=== PATIENT | female | born 1995 | race Caucasian/White ===

== ENCOUNTER 2022-08-14 13:51 | Outpatient (CLI) | payer BC, SELFPAY ==
--- OUTSIDE RECORDS SUMMARY | 2022-08-14 13:55 | XMS_ITS | Clinical Summary ---
:1995 Author Organization [employer] [facility] [place] [address] Care Team Providers Name Role Phone Sukhdeep Echols PA-C Primary Care Provider Unknown, Doctor Unavailable Unavailable Allergies Active Allergy Reactions Severity Noted Date Comments Ampicillin Rash 01/04/2006 Penicillins Hives 10/11/2018 Medications Medication Sig Dispensed Refills Start Date End Date Status BROMFED PD 6 MG-7.5 MG Take 1 cap every 60 3 07/28/2006 Active 12 HR CAP 12 hours as needed BROMFENEX PD 6 MG-60 one PO BID 60 0 07/30/2006 Active MG CAP Active Problems Not on file Immunizations Name Administration Dates Next Due AMB Influenza, IIV3 (Age >=3 08/12/2009 years)(Flu Clinic Only) COVID-19 vaccine ([email or web address] 11/20/2020, 10/30/2020 30mcg/0.3mL) PF, MDV DTP-HIB 03/07/1996, 1995, 1995, 1995 DTaP 01/02/2000 Hepatitis B (Peds) 1995, 1995, 1995 Inactivated Polio Vaccine 01/02/2000 Influenza, IIV3 (Age >=3 years) 09/13/2006, 08/28/2005, 11/08, 08/29/2003, 09/11/2002, 10/12/2001 MMR 01/02/2000, 03/07/1996 Meningococcal Vaccine 01/04/2006 Oral Polio Vaccine 1995, 1995, 1995 Tdap 01/04/2006 Family History Medical History Relation Name Comments Genetic Other cataracts-grandm other~Family history of:~~Breast Canc er: No~~Ovarian Cancer: No~~Colon CA: No ~~Prostate/Testicular CA: pat ggpa~~Osteop orosis: No~~Early CAD: No~~DM: No~~Thyr oid Dz: No Cancer-prostate Paternal Grandfather Relation Name Status Comments Other Paternal Grandfather Social History Tobacco Use Types Packs/Day Years Used Date Never Smoker 0 Alcohol Use Standard Drinks/Week Comments No 0 (1 standard drink = 0.6 oz pure alcoho l) Sex Assigned at Date Recorded Not on file Obstetrics History Last Filed Vital Signs Vital Sign Reading Time Taken Comments Blood Pressure 122/88 10/11/2018 9:20 PM CONSERVATOR ARTIFACTS Pulse 85 10/11/2018 9:20 PM CONSERVATOR [employer]IFACTS Temperature 35.9 ??C (96.6 ??F) 10/11/2018 9:20 PM CONSERVATOR ARTIFACTS Respiratory Rate 15 10/11/2018 9:20 PM CONSERVATOR [employer]IFACTS Oxygen Saturation 100% 10/11/2018 9:20 PM CONSERVATOR ARTIFACTS Inhaled Oxygen Concentration - - Weight 61.2 kg (135 lb) 10/11/2018 9:20 PM CONSERVATOR ARTIFACTS Height 175.3 cm (5' 9) 10/11/2018 9:20 PM CONSERVATOR [employer]IFACTS Body Mass Index 19.94 10/11/2018 9:20 PM CONSERVATOR ARTIFACT[employer] Plan of Treatment Health Maintenance Due Date Last Done Comments Depression screening for age 12+ 2007 BMI (ht and wt on same day) for 2013 age 18+ Hepatitis C screening for age 0201/03/2013 18-79 Tetanus booster 01/04/2016 01/04/2006 COVID-19 vaccine series (3 - 04/20/2021 11/20/2020, 020 Booster for Pfizer series) Influenza for age 9-49 07/09/2022 08/12/2009, 09/13/2006, 08/28/2005, Additional history exists Pap test for age 21-65 12/27/2023 12/27/2020, 09/08/2019, 09/08/2019, Additional history exists Tdap Completed 01/04/2006 Results Not on filefrom Last 3 Months Insurance Payer Benefit Plan / Subscriber ID Effective Dates Phone Addre ss Type Group WC WORKERS [employer] [id number] 2020-Prese [address] [place] [address] BLUE CROSS BLUE CROSS OF [id number] 2018-Presen [address] [address] [place] [address] BLUE CROSS BLUE CROSS OF [id number] 2018-Presen [address] [address] [place] [address] OCC HEALTH OCC HEALTH [id number] 2020-Pres [address] ATTN: CHARLI SALES [facility] [place] [address] Sangeeta King Workers Comp Self [phone] (Home) [place] [address] Care Teams Manager Net Relationship Specialty Start Date End Date Sukhdeep Echols PA-C PCP - General Physician Electric Refrigerator Preparer 01/17/20 [id number] [place] [address] Unknown, Doctor Unknown Physician 01/17/20 . Specialty
--- NOTE | 2022-08-14 14:00 | CRLHL7_ITS ---
For Patients: As a result of the Century Cures Act, medical imaging exams and procedure reports are released immediately into your electronic medical record. You may view this report before your referring provider. If you have questions, please contact your health care provider. OB ULTRASOUND 08/14/2022 CLINICAL HISTORY: Encounter for supervision of normal . NATHALY by LMP: 12/29/2022. GA: 20w, 1d. . P: 0. FINDINGS: position: Vertex. Cervix: Visualized. Technique: Transabdominal. Length of closed cervix: 4.8 cm. Placenta/cord: Posterior. Left wall. Placenta tip to internal OS: 7.1 cm. Umbilical Cord: 3-vessel cord. Placenta insertion: Central. Amniotic Fluid: 4.2 cm SDP (greater than/equal to: 2- less than 8 cm). SURVEY: Observed Structures Calvarium/Spine: Cerebellum: 2.0 cm, 20w 5d. Cisterna Magna: 2.5 mm. Nuchal Fold: 3.1 mm. Lateral Ventricle: 3.8 mm. CSP: Yes. Midline Falx: Yes. Choroid Plexus: Yes. Spine: Yes. Abdomen: Stomach: Yes. Abd Cord Insertion: Yes. Urinary Bladder: Yes. Kidneys: Yes. Diaphragm: Yes. Face: Nose/lips: Yes. Orbital view: Yes. Profile: Yes. Limbs: Upper Extremities: Yes. Lower Extremities: Yes. Hands: Yes. Feet: Yes. Vascular: Four-Chamber Heart: Yes. LVOT: Yes. RVOT: Yes. BPD: 4.8 cm. 20w 3d, 50 percent. HC: 17.9 cm. 20w 3d, 39 percent. AC: 15.9 cm. 21w 0d, 64 percent. FL: 3.1 cm. 19w 5d, 20 percent. FL/AC: 19.73 percent. HC/AC Ratio: 1.13. Heart rate: 141 beats per minute. age by this US: 20w 3d. NATHALY by this US: 12/29/2022. EFW: 353.10 g. Weight: 12 oz. Percentile by NATHALY: 45 percent. IMPRESSION: Single live intrauterine gestation with gestational age of 20 weeks 3 days, NATHALY of 12/29/2022. No gross anomalies visualized. TAWANA CARTER M.D. Transcribed: 7:42 p.m. [email or web address] be/Dictated by: Tawana Carter MD @ 08/14/2022 3:30:00 PM (Electronically Signed)
== END 2022-08-14 13:52 | disposition home or self-care (01) ==
LOC: US 13:52
PROVIDERS: PCP Physician Assistant Medical; Visit Provider Advanced Practice Midwife
DX: Z34.91 Encounter for supervision of normal pregnancy, unspecified, first trimester (principal); O20.9 Hemorrhage in early pregnancy, unspecified; Z3A.01 Less than 8 weeks gestation of pregnancy
CPT/HCPCS: 76805

== ENCOUNTER 2022-10-07 14:20 | Outpatient (CLI) | payer BC, SELFPAY ==
--- OUTSIDE RECORDS SUMMARY | 2022-10-07 14:30 | XMS_ITS | Clinical Summary ---
:1995 Author Organization [employer] [facility] [place] [address] Care Team Providers Name Role Phone Sukhdeep [...] >=3 08/12/2009 years)(Flu Clinic Only) COVID-19 vaccine ([employer] 11/20/2020, 10/30/2020 30mcg/0.3mL) PF, MDV DTP-HIB 03/07/1996, [...] Comments Blood Pressure 122/88 10/11/2018 9:20 PM SENIOR EDUCATION SPECIALIST Pulse 85 10/11/2018 9:20 PM SENIOR EDUCATION SPECIALIST Temperature 35.9 ??C (96.6 ??F) 10/11/2018 9:20 PM SENIOR EDUCATION SPECIALIST Respiratory Rate 15 10/11/2018 9:20 PM SENIOR EDUCATION SPECIALIST Oxygen Saturation 100% 10/11/2018 9:20 PM SENIOR EDUCATION SPECIALIST Inhaled Oxygen Concentration - - Weight 61.2 kg (135 lb) 10/11/2018 9:20 PM SENIOR EDUCATION SPECIALIST Height 175.3 cm (5' 9) 10/11/2018 9:20 PM SENIOR EDUCATION SPECIALIST Body Mass Index 19.94 10/11/2018 9:20 PM SENIOR EDUCATION SPECIALIST Plan of Treatment Health Maintenance Due Date Last Done Comments Depression screening for age 12+ 2007 HIV for age 15-65 2010 BMI (ht and wt on same day) for 2013 age 18+ Hepatitis C screening for age 0201/03/2013 18-79 Tetanus booster 01/04/2016 01/04/2006 COVID-19 vaccine series (3 - 01/15/2021 11/20/2020, 020 Booster for Pfizer series) Influenza for age 9-49 07/09/2022 08/12/2009, 09/13/2006, 08/28/2005, Additional history exists Pap test for age 21-65 12/27/2023 12/27/2020, 09/08/2019, 09/08/2019, Additional history exists Tdap Completed 01/04/2006 Results Not on filefrom Last 3 Months Insurance Payer Benefit Plan / Subscriber ID Effective Dates Phone Addre ss Type Group WC WORKERS [employer]EL ANGEL [id number] 2020-Prese [address] [place] [address] BLUE CROSS BLUE CROSS OF [id number] 2018-Presen [address] [address] [place] [address] BLUE CROSS BLUE CROSS OF [id number] 2018-[address] [address] [address] [place] [address] [facility] [id number] 2020-Pres [address] ATTN: [place] [address] Sangeeta Knig Workers Comp Self [phone] (Home) [place] [address] Care Teams Director Pharmaceutical Relationship Specialty Start Date End Date Sukhdeep Echols PA-C PCP - General Physician Windows Application Administrator 01/17/20 [address] [place] [address] Unknown, Doctor Unknown Physician 01/17/20 . Specialty
[2022-10-09 23:49] LABS: Rapid Plasma Reagin (RPR) Non Reactive (Non Reactive)
== END 2022-10-07 14:21 | disposition home or self-care (01) ==
PROVIDERS: PCP Physician Assistant Medical; Visit Provider Advanced Practice Midwife
DX: Z34.83 Encounter for supervision of other normal pregnancy, third trimester (principal); Z3A.28 28 weeks gestation of pregnancy
CPT/HCPCS: 86592

== ENCOUNTER 2022-10-23 14:47 | Outpatient (CLI) | payer BC, SELFPAY ==
--- NOTE | 2022-10-23 15:00 | CRLHL7_ITS ---
For Patients: As a result of the Cures Act, medical imaging exams and procedure reports are released immediately into your electronic medical record. You may view this report before your referring provider. If you have questions, please contact your health care provider. INDICATION: Growth, check fluid and cervix, measuring small for dates. COMPARISON: OB ultrasound 08/14/2022. TECHNIQUE: Ultrasound OB pelvis with real time guzman scale imaging and color Doppler analysis. FINDINGS: Sonographic imaging demonstrates a single living intrauterine gestation. The fetus has a regular cardiac rate of 139 beats per minute. The fetus has a cephalic orientation. The placenta lies posteriorly without evidence of placenta previa. Amniotic fluid volume appears normal with single deepest pocket measuring 3.8 cm. The cervix is closed and measures 3.7 cm in length. The composite ultrasound gestational age is calculated at 30 weeks 1 day with an estimated sonographic due date of 12/31/2022. The estimated weight is 1475 grams which lies at the 21st percentile. The following biometric measurements were obtained: Biparietal diameter: 7.40 cm (29 weeks 5 days) (18th percent) Head circumference: 28.18 cm (30 weeks 6 days) (26th percentile) Abdominal circumference: 25.55 cm (29 weeks 5 days) (25th percentile) Femur length: 5.71 cm (30 weeks 0 days) (23rd percentile) The HC/AC ratio measures: 1.10 (range 0.97-1.19) IMPRESSION: 1. Single living intrauterine gestation in cephalic position with heart rate 139 beats per minute. 2. Ultrasound gestational age 30 weeks 1 day with sonographic due date 12/31/2022. This is concordant with the clinical gestational age of 30 weeks 3 days. 3. Estimated weight at the 21st percentile. 4. Single deepest pocket within normal limits. The cervix is closed. Dictated by Martine Jordan MD @ 10/24/2022 12:01:20 AM (Electronically Signed)
== END 2022-10-23 14:48 | disposition home or self-care (01) ==
LOC: US 14:47
PROVIDERS: PCP Physician Assistant Medical; Visit Provider Advanced Practice Midwife
DX: O36.5920 Maternal care for other known or suspected poor fetal growth, second trimester, not applicable or unspecified (principal); Z3A.30 30 weeks gestation of pregnancy
CPT/HCPCS: 76816; 76817

== ENCOUNTER 2022-11-19 08:16 | Outpatient (CLI) | payer BC, SELFPAY ==
--- NOTE | 2022-11-19 08:15 | CRLHL7_ITS ---
For Patients: As a result of the Cures Act, medical imaging exams and procedure reports are released immediately into your electronic medical record. You may view this report before your referring provider. If you have questions, please contact your health care provider. INDICATION: Third trimester scan, evaluate growth. COMPARISON: 10/23/2022 TECHNIQUE: Real time guzman scale imaging of the fetus was performed. FINDINGS: Sonographic imaging demonstrates a single living intrauterine gestation. Fetus demonstrates a regular cardiac rate of 136 beats per minute. Fetus has a vertex position. The placenta lies posteriorly. Amniotic fluid volume appears normal and there is a single deepest vertical pocket: 3.5 cm. The estimated weight is 2259gm which lies at the 28th %. On the prior OB ultrasound exam dated 10/23/2022 the estimated weight was at the 21st%. BPD 9th percentile. HC 14th percentile. AC 40th percentile. FL 27th percentile. The HC/AC ratio measures 1.03 range (0.95-1.11). IMPRESSION: Sonographic gestational age 33 weeks 4 days and sonographic due date 01/03/2023. Sonographic age is 5 days behind the clinical age. Estimated weight 28th percentile. Abdominal circumference 40th percentile. Dictated by Brandon Morejon MD @ 11/19/2022 10:01:30 AM (Electronically Signed)
== END 2022-11-19 08:17 | disposition home or self-care (01) ==
LOC: US 08:17
PROVIDERS: PCP Physician Assistant Medical; Visit Provider Advanced Practice Midwife
DX: O36.5930 Maternal care for other known or suspected poor fetal growth, third trimester, not applicable or unspecified (principal); Z86.16 Personal history of COVID-19; Z3A.33 33 weeks gestation of pregnancy
CPT/HCPCS: 76816

== ENCOUNTER 2022-12-02 11:19 | Outpatient (CLI) | payer BC, SELFPAY ==
[2022-12-03 11:57] LABS: Strep B DNA Probe NEGATIVE (Negative)
[2022-12-04 03:09] LABS: Strep B Pen/Amox Allergy Yes
== END 2022-12-02 11:20 | disposition home or self-care (01) ==
LOC: NFLDREF 11:19
PROVIDERS: PCP Physician Assistant Medical; Visit Provider Advanced Practice Midwife
DX: Z34.93 Encounter for supervision of normal pregnancy, unspecified, third trimester (principal); Z3A.36 36 weeks gestation of pregnancy
CPT/HCPCS: 87081; 87653

== ENCOUNTER 2022-12-17 13:49 | Outpatient (CLI) | payer BC, SELFPAY ==
--- NOTE | 2022-12-17 14:00 | CRLHL7_ITS ---
For Patients: As a result of the Century Cures Act, medical imaging exams and procedure reports are released immediately into your electronic medical record. You may view this report before your referring provider. If you have questions, please contact your health care provider. INDICATION: small for dates COMPARISON: 11/19/2022 TECHNIQUE: Real time guzman scale imaging of the fetus was performed. FINDINGS: Sonographic imaging demonstrates a single living intrauterine gestation. Fetus demonstrates a regular cardiac rate of 126 beats per minute. Fetus has a vertex position. The placenta lies posteriorly. Amniotic fluid volume appears normal and there is a single deepest vertical pocket: 3.9 cm. The estimated weight is 3107gm which lies at the 33rd %. On the prior OB ultrasound exam dated 11/19/2022 the estimated weight was at the 28th%. BPD 6th percentile. HC 9th percentile. AC 43rd percentile. FL 31st percentile. The HC/AC ratio measures 0.97 range (0.92-1.06). IMPRESSION: Sonographic gestational age 36 weeks 5 days and sonographic due date 01/09/2023. Sonographic age 11 days behind the clinical age. Estimated weight 33rd percentile. Abdominal circumference 43rd percentile. Dictated by Brandon Morejon MD @ 12/18/2022 9:46:59 AM (Electronically Signed)
--- NOTE | 2022-12-23 13:30 | PM.ANPROEV ---
[facility] Medical History (Updated 12/17/22 @ 19:58 by Laxmi Kowalski CNM) ASCUS of cervix with negative high risk HPV Bleeding in early Secondary physiologic amenorrhea Spontaneous Vasovagal near syncope Surgical History (Updated 05/18/22 @ 13:24 by Louisa Alva CNM) History of placement of ear tubes Waddy teeth extracted Family History (Updated 05/18/22 @ 13:27 by Louisa Alva CNM) Paternal Grandmother Colon cancer High blood pressure Paternal Grandfather High blood pressure Prostate cancer Maternal Grandfather High blood pressure Atrial fibrillation Seizure Mother Healthy adult Father Healthy adult Brother Healthy adult Social History (Updated 09/08/22 @ 14:42 by Monica Miller CNM) Narrative: SOCIAL Education: Bachelors Work: RN in [place] Partner: Jimenez Mathew field contact person Lives with: Pets: none Abuse: Denies past/present Special Diet: Denies Ok with a blood transfusion: yes Culture or quaker beliefs: denies RISK FACTORS Exercise Times/wk: beach body, biking, yoga Depression/Anxiety: no LONNIE: 2 PHQ 9: 0 Seat Belt Use: Routinely Smoking: denies Alcohol/day: Denies while Caffeine: rarely Drug Use: Denies past/present Chicken Pox: Yes as a child and 1 vaccine MRSA: Denies Planning to breastfeed: yes Highest level of school completed/degree received: Bachelor's degree Physical activity type: walking, bicycling, yoga and other Physical activity type details: cardio How many days of moderate to strenuous exercise, like a brisk walk, did you do in the last 7 days: 4 Smoking Status: Never smoker Non-prescribed substance use: denies use Caffeine: No (occasional use) Little interest or pleasure in doing things: not at all Feeling down, depressed, or hopeless: not at all Meds Home Medications and Allergies Home Medications Medication Instructions Recorded Confirmed Type aspirin 81 mg chewable tablet 81 mg PO QDAY 07/15/22 12/17/22 History prenat.vits,toni,pwp-kzbz-tkbct 1 tab PO QDAY 07/15/22 12/17/22 History ascorbate calcium (vitamin C) 500 500 mg PO QDAY 08/14/22 12/17/22 History mg tablet calcium carbonate 500 mg calcium 500 mg PO QDAY 08/14/22 12/17/22 History (1,250 mg) chewable tablet (Calcium 500) cholecalciferol (vitamin D3) 50 50 mcg PO QDAY 08/14/22 12/17/22 History mcg (2,000 unit) capsule Allergies Allergy/AdvReac Type Severity Reaction Status Date / Time Penicillins Allergy Severe Hives Verified 12/17/22 09:15 Assessment and Plan Assessment and plan (1) Scoliosis: Problem comment: x-ray 20 degrees right thoracic and 20 degrees left lumbar. risser 2. 02/14; 22 degrees 02/15-closed growth plate Status: Chronic (2) : Status: Acute Plan Called patient to discuss scoliosis. She is due in the next week. Images were available to review. Discussed with patient that her scoliosis doesn't exclude her from neuraxial anesthesia, but potential for more difficult placement is there. Recommend earlier placement if epidural is in plans. This will allow for better positioning when contraction pain is less
== END 2022-12-17 13:50 | disposition home or self-care (01) ==
LOC: US 13:50
PROVIDERS: PCP Physician Assistant Medical; Visit Provider Advanced Practice Midwife
DX: O36.5930 Maternal care for other known or suspected poor fetal growth, third trimester, not applicable or unspecified (principal); Z3A.36 36 weeks gestation of pregnancy
CPT/HCPCS: 76816

== ENCOUNTER 2022-12-31 05:56 | Inpatient (IN) | payer BC, SELFPAY ==
[2022-12-31] VITALS (30 sets, daily range): BP systolic 108–186; BP diastolic 55–81; PULSE 67–145; RESP 18; TEMP 36.7–37.4; O2SAT 86–100
--- NOTE | 2022-12-31 06:28 | P.LDBA_ITS ---
Subjective History of Present Illness Narrative: Sangeeta is a 27 year old at 40 2/7 weeks gestation being admitted to Labor and Delivery for spontaneous onset of labor. She reports her contractions began around 1 am this morning and began getting more intense and more regular about 430am. She was evaluated in Triage last evening for vaginal discharge but the AmniSure was negative. She did not have much leaking of fluid when she was here. She reports when she got home she had just sat down on the couch and felt a big gush that soaked through her clothes and the couch. This occured at about 930pm. She then had a second larger gush about 10 minutes later. She has not really noticed much more but feels more wet than before this happened. Since arrival to Labor and Delivery, she denies any noticeable leaking of fluid.She is supported in labor by her , Jimenez. Her full history and physical was dictated by MACKENZIE Botello on 12/11/2022. Please see this for details. 1. Sub-chorionic hemorrhage on US - pt has had some brown bleeding, workup has been normal. Resolved at anatomy scan 2. Scoliosis Anesthesia consult-not excluded from epidural but encouraged to consider earlier if she desires one. 3. Varicella Non-Immune Recommend Varicella vaccine pp 4. Covid positive 08/18/22- out of quarantine 08/26/22 32 weeks: Done at 30 weeks-cervix 3.7cm, SDP 3.8, EFW 21% 34 weeks: 28th %ile 5. Small for dates Growth US at 30 weeks. Measuring 5 weeks behind. 21%ile with normal cervical length and fluid Growth US at 34 weeks: 28th %ile Growth US at 38 weeks: 33% OB - Problem Based A/P Additional Plan (1) Pain during labor: Status: Acute (2) : Status: Acute Plan ASSESSMENT:? 27 at 40 2/7 weeks gestation? complicated by:?Scoliosis, varicella non-immune, COVID, measuring small for dates Labor type: Spontaneous, Early labor? Category 2 FHR pattern, reassuring? Labor complicated by: none? GBS negative? ? PLAN:? 1. Routine intrapartum cares as ordered. Continue with expectant management. Discussed possible SROM 2. Monitoring per policy, continuous until Cat I tracing x 20 minutes. Occasional decelerations noted. 3. Planning unmedicated . Desires water . Consent signed. Hep C negative. Candidate for analgesia of choice.?? 4. Patient encouraged to reposition and ambulate to promote physiologic labor and .? 5. Anticipate ? Delivery/Labor/Induction Plan Plan: expectant management OB Exam Physical Exam Vital signs: Pulse BP Pulse Ox 99 116/81 93 12/31/22 05:25 12/31/22 05:25 12/31/22 05:36 Narrative: Vitals Reviewed? Psychiatric:? Alert and oriented x3? HEENT:? Normocephalic, atraumatic? Neck:? Supple?? Lungs:? Clear to auscultation bilaterally? Heart:? Regular rate and rhythm, no murmur, rub or gallop? Abdomen:? Soft, nontender, and gravid. Vertex confirmed with cervical exam.? Extremities:? No edema or erythema Detailed Labor and Delivery Exam Patient Gravid: Yes Dilation (cm): 5 Effacement (%): 90 Contraction Frequency: 2-3 Tachysystole: No Contraction intensity: Moderate Fetus (Single) Station: 0 Amniotic Membrane Status: intact (Possible SROM at 2130 12/31) Heart Rate Baseline: 120 Monitor Accelerations: Present Monitor Decelerations: Variable Custodial Variability: Moderate (6-25)
[2022-12-31 07:45] LABS: SARS PCR* Negative SARS-CoV-2 (Negative)
[2022-12-31] MEDS: OXYTOCIN 10 UNIT/ML INJ IM (09:03)
[2022-12-31] MEDS: LIDOCAINE 1 % PF 30 ML INJECTION (09:20)
--- NOTE | 2022-12-31 09:45 | W.PM.VAGDELN ---
OB Procedure Vag Delivery Mother Details Mother Details: The patient is a 27 year-old, 2, Para 0, admitted on 12/31/22 at 40.2 Days gestation. Cervical exam on admission was 5 cm/90 % effaced/0 station with membranes ruptured in vertex presentation.? Contractions were every 2-3 minutes.? heart rate demonstrated baseline 120 bpm with moderate variability, + accelerations, variable decelerations and an occasional late variable; a category 2 tracing.?Sangeeta was seen in triage last night for questionable SROM. Her AmniSure was negative at that time. Around 2100 after she got home she felt 2 more gushes of fluid. She did not come back in as she had jsut been sent home. She started cristobal shortly after SROM and they slowly increased in frequency and intensity. she came in to the hospital around 0500 this am. she progressed to complete and pushed well. FHT were 110/120 during pushing with decelerations to the 70-80's with good recovery after. She did labor in the tub but decided to get out. She then felt pressure and was found to be complete. She was given the option to get back into the tub or stay in the bed. She choose to stay in the bed where she delivered : 2 Para: 1 Weeks Gestation: 40.2 Admission Date: 12/31/22 Additional Details Amniotic Membrane Status: [place] [address]/31) Amniotic Membrane Rupture Date: 12/30/22 Amniotic Membrane Rupture Time: 21:00 Amniotic Membrane Fluid Description: Clear Analgesia/Anesthesia Type: None Waterbirth: No Pitcoin: Yes (after delivery only) Intrapartal Events: None Labor Onset: 12/31/22 at 0500 Complete: 08:23 Pushin:26 Heart: heart tones during second stage were [] Delivery Details Delivery Date: 12/31/22 Delivery Time: 09:02 Route of delivery: Infant Gender: Male Infant Viability: Alive; Heart Rate Present Position at Delivery: OA (JIMMY) Delivery Details: Delivered over intact perineum via spontaneous vaginal delivery. Infant was placed on maternal abdomen.? Cord was clamped and cut after a 5 minute delay. Nose and mouth were bulb suctioned.? weight pending. 1 Minute Interval Total Score: 8 5 Minute Interval Total Score: 9 Additional Details Shoulder Dystocia: No Placenta Delivery Time: 09:13 Placental Delivery Description: Spontaneous Delivery repair: Vicryl Procedure Done: Global Estimated Blood Loss: 175 Laceration: Perineal - 2nd Degree Episiotomy Description: None Blood Loss Measurement Type: QBL Bakri Used: No Sponge/Need Count Correct: Yes Cord Vessel Description: 3 Vessels (nuchal cord x1 loose, reduced on the perineum) Event Summary Status: Mother and were stable after delivery. Sponge and needles counts are correct.?
[2023-01-01 00:25] VITALS: BP 112/71; PULSE 76; RESP 18; TEMP 37.2; O2SAT 97
[2023-01-01 04:50] VITALS: BP 109/68; PULSE 77; RESP 18; TEMP 37.2
[2023-01-01 07:53] VITALS: BP 127/81; PULSE 80; RESP 18; TEMP 37.3; O2SAT 98
[2023-01-01] MEDS: DOCUSATE SODIUM 100 MG CAPSULE PO (08:13)
--- NOTE | 2023-01-01 09:21 | PM.OBPNVD1 ---
OB - PN:Subj Subjective Date Seen: 01/01/23 Patient comments OB post-: no complaints, pain well controlled, tolerating diet and flatus present [place] status: and doing well [place] feeding status: exclusively Narrative: Sangeeta is a 27yo at 40 3/7 weeks gestation s/p uncomplicated vaginal delivery The patient feels well.? The pain is well controlled with current medications.? She has no new complaints.? Urinary output is adequate and she is voiding without difficulty.? Has a good appetite, is tolerating a general diet, is passing flatus, and has not yet had a bowel movement.? Has small amount of rubra lochia.? She is ambulating well. She is and reports it is going well.?She does desire to continue to work on her skills and see today. OB - PN: Obj Exam Physical Exam: Vital signs: Temp Pulse Resp BP Pulse Ox O2 Del Method 99.2 F 80 18 127/81 98 01/01/23 07:53 01/01/23 07:53 01/01/23 07:53 01/01/23 07:53 01/01/23 07:53 01/01/23 07:53 Narrative: GENERAL APPEARANCE:? normal affect, alert, no distress? MOOD:? appropriate? CHEST:? clear to auscultation? HEART:? regular rate and rhythm? ABDOMEN:? soft, non-tender the uterine fundus is At Umbilicus, Midline and is appropriate for the stage of recovery.? PERINEUM:? mild edema of the perineum, there is a Perineal Laceration,? 2nd degree, that is healing well.? EXTREMITIES:? normal and no edema? OB - PN: Obj Data Labs Labs: Laboratory Results - last 24 hr 01/01/23 06:40 Hgb 12.0 OB - PN: A/P Vaginal Delivery Assessment and Plan (1) care and examination immediately after delivery: Status: Acute (2) Lactating mother: Status: Acute Plan day: 1 Plan: routine care Comments: May see if desired. Anticipate discharge tomorrow, 01/02/23.
[2023-01-01 14:14] VITALS: BP 133/78; PULSE 71; RESP 18; TEMP 36.6; O2SAT 99
[2023-01-01 16:44] VITALS: BP 120/73; PULSE 81; RESP 16; TEMP 36.8; O2SAT 97
--- NOTE | 2023-01-01 17:08 | PC.NURSE ---
At 1414 pt calling to report a feeling of lightheadedness/dizziness. Pt reports this is chronic for her. She states she has experienced this on-and-off for the past 2 years and has been followed by her PCP for this. Pt denies unsteady gait, feeling too weak to stand or ambulate, denies feeling like the room is spinning or tilting. Vitals checked and WNL. Pt reports she is voiding well and eating/drinking/keeping up her fluid intake. This RN advised pt to notify staff immediately of any new or worsened symptoms, feeling too weak to stand, feeling like passing out, unsteady gait. Farrowing Worker advised pt to take her time change positions from uvwmj-jy-qpxrcch-to-standing. Advised pt to keep up her fluid intake and not to hold baby if she is feeling unwell, weak. This RN checked pt's vaginal bleeding. No changes. Pt verbalized understanding, in agreement with plan of care, and denies questions/concerns. Update at 1630: Pt reports dizziness resolved.
[2023-01-01 23:44] VITALS: BP 134/85; PULSE 69; RESP 16; TEMP 36.7; O2SAT 97
[2023-01-02 00:20] VITALS: BP 135/86
--- NOTE | 2023-01-02 08:27 | P.DS_ITS ---
DS: Providers Provider Date Seen: 01/02/23 Date of admission: 12/31/22 05:56 Primary care physician: Sukhdeep Echols PA-C Admitting Clinician: Monica Miller CNM Attending Physician on discharge: Monica Miller CNM Date of Discharge: 01/02/23 DS: Diagnosis Discharge Diagnosis (1) care and examination immediately after delivery: Status: Acute (2) Lactating mother: Status: Acute Exam Const: Vital Signs, click to edit/add: Vital Signs - 24 hr 01/01/23 14:14 01/01/23 16:44 01/01/23 23:44 Temperature 97.9 F 98.2 F 98.1 F Pulse Rate [Pulse Oximeter] 71 81 69 Respiratory Rate 18 16 16 Blood Pressure [Ri ght Arm] 133/78 120/73 134/85 Pulse Oximetry 99 97 97 Oxygen Delivery Me thod Room Air Room Air Room Air 01/02/23 00:20 Temperature Pulse Rate [Pulse Oximeter] Respiratory Rate Blood Pressure [Ri ght Arm] 135/86 Pulse Oximetry Oxygen Delivery Me thod Documenting provider has reviewed patient's vital signs: yes Common normals: no apparent distress, oriented x3 and healthy appearing HENMT: Common normals: normocephalic Head and scalp: normocephalic Eye: Common normals: PERRL Pupil: PERRL Neck & C-Spine: Common normals: full ROM Chest: Common normals: inspection of chest normal Resp: Common normals: normal respiratory effort Effort & inspection: able to speak in complete sentences GI: Inspection: normal to inspection : Uterus: U/1 Lochia: small Back & Pelvis: Common normals: thoraco-lumbar ROM normal Extremity: Common normals: normal to inspection and full ROM Neuro: Common normals: oriented x3 Psych: Common normals: mental status grossly normal Skin: Common normals: no rashes or lesions noted General skin exam: no rashes or lesions noted OB - DS: Summary Hospital Course Hospital Course: The patient is a 27 year old G 2 now P 1 at 40.2 weeks gestation that was admitted to the Center on 12/31/22 for labor. She had an uncomplicated vaginal delivery. She delivered a viable male infant. She is breast feeding. the patient has done well. Peripartum Data delivery method: Vaginal Laceration description: Perineal - 2nd Degree complications: none Infant Gender: Male Discharge Plan: Home Status at Discharge Functional status at discharge: independent ambulation Overall status at discharge: patient is progressing back to baseline Time Spent with Patient Time attestation: Total time spent providing and/or coordinating discharge services: Time spent: Less than 30 minutes Discharge Plan Discharge Disposition: Home, Self-Care Date of Admission: 12/31/22 05:56 Attending Provider on Discharge: Monica Miller Primary Care Provider: Sukhdeep Echols Condition: Stable Anticipated Discharge Date/Time: 01/02/23 12:00 Discharge Medications: New acetaminophen 500 mg Tablet 1,000 mg PO Q6H PRN (Reason: pain/fever) Qty: 0 0RF docusate sodium 100 mg Capsule 100 mg PO DAILY Qty: 60 0RF Continued prenat.vits,toni,mgz-hncz-kstnc Tablet 1 tab PO QDAY cholecalciferol (vitamin D3) 50 mcg (2,000 unit) capsule 50 mcg PO QDAY ascorbate calcium (vitamin C) 500 mg tablet 500 mg PO QDAY calcium carbonate [Calcium 500] 500 mg calcium (1,250 mg) tablet,chewable 500 mg PO QDAY Discontinued aspirin 81 mg tablet,chewable 81 mg PO QDAY Discharge Orders: Discharge Order (Routine); Ordered 01/02/23 Ordered By: Monica Miller Patient Education: OB Over the Counter Medication Information, OB Vaginal/Breast Feeding Additional Instructions: Discharge instructions were reviewed with the patient including signs and symptoms of infection and home going medications Nothing vaginally for 6 weeks: no tampons or intercourse Off Work or School for 6 weeks 2-week visit: discuss feeding concerns, review control options and screen for anxiety/depression. 6-week visit for an annual exam. consultation services are available to all mothers and babies for the first year after delivery.? To make an appointment, please call [phone]. Activity Level: Activity as Tolerated Discharge Diet: Regular Follow Up Appointments: Sukhdeep Echols PA-C [Primary Care Provider] - Forms: [employer] Info Instructions
[2023-01-02 08:30] VITALS: BP 129/84; PULSE 92; RESP 16; TEMP 36.6; O2SAT 97
[2023-01-02] MEDS: DOCUSATE SODIUM 100 MG CAPSULE PO (10:14)
== END 2023-01-02 10:59 | disposition home or self-care (01) | DRG 560 ==
LOC: OB OUT 05:57 → OB 06:13
PROVIDERS: Advanced Practice Midwife; Admitting Provider Advanced Practice Midwife; PCP Physician Assistant Medical; Visit Provider Advanced Practice Midwife
DX: O99.892 Other specified diseases and conditions complicating childbirth (principal); M41.9 Scoliosis, unspecified; O70.1 Second degree perineal laceration during delivery; Z37.0 Single live birth; Z3A.40 40 weeks gestation of pregnancy
CPT/HCPCS: 36415; 59025; 81003; 84112; 85018; 87210; 87635; 99213; A9270; J2001; J2590

== ENCOUNTER 2024-02-23 10:20 | Outpatient (CLI) | payer BC, SELFPAY | END 2024-02-23 10:21 | disposition home or self-care (01) | PROVIDERS: PCP Physician Assistant Medical; Visit Provider Physician Assistant Medical | DX: Z13.228 Encounter for screening for other metabolic disorders (principal); Z13.220 Encounter for screening for lipoid disorders; Z13.29 Encounter for screening for other suspected endocrine disorder | CPT/HCPCS: 80053; 80061; 84443 ==

== ENCOUNTER 2024-09-25 14:19 | Outpatient (CLI) | payer BC, SELFPAY ==
--- OUTSIDE RECORDS SUMMARY | 2024-09-29 14:41 | XMS_ITS | Clinical Summary ---
Author Organization [employer] [facility] Address [place], [place] [address] Care Team Providers Care Special Education Teachers Name Role Phone Sukhdeep Echols PA-C Primary Care Provider Unknown, Doctor Unavailable Unavailable Allergies Active Allergy Reactions Criticality Noted Date Comments Ampicillin Rash 01/04/2006 Penicillins Hives 10/11/2018 Medications Medication Sig Dispensed Refills Start Date End Date Status BROMFED PD 6 MG-7.5 MG 12 HR CAP Take 1 cap every 12 hours as needed 60 3 07/28/2006 Active BROMFENEX PD 6 MG-60 MG CAP one PO BID 60 0 07/30/2006 Active Active Problems No known active problems Immunizations Name Administration Dates Next Due AMB Influenza, IIV3 (Age >=3 years)(Flu Clinic Only) 08/12/2009 COVID-19 vaccine ([employer] NTExent 30mcg/0.3mL) PF, MDV 11/20/2020,10/30/2020 DTP-HIB 03/07/1996, 5,1995,02/19 DTaP 01/02/2000 Hepatitis B (Peds) 1995,1995, 995 Inactivated Polio Vaccine 01/02/2000 Influenza, IIV3 (Age >=3 years) 09/13/20 06,08/28/2005,11/18/2004,08/29,09/11/2002,10/12/2001 MMR 01/02/2000,03/07/1996 Meningococcal Vaccine 01/04/2006 Oral Polio Vaccine 1995,1995, 995 Tdap 01/04/2006 Family History Medical History Relation Name Comments Genetic Other cataracts-grand mother~Family history of:~~Breast Cancer: No~~Ovarian Cancer: No~~Colon CA: No~~Prostate/Testicular CA: pat ggpa~~Osteoporosis: No~~Early CAD: No~~DM: No~~Thyroid Dz: No Cancer-prostate Paternal Grandfather Relation Name Status Comments Other Paternal Grandfather Social History Tobacco Use Types Packs/Day Years Used Date Smoking Tobacco: Never Alcohol Use Standard Drinks/Week Comments No 0 (1 standard drink = 0.6 oz pur e alcohol) Social Connections Answer Date Recorded Frequency of Communication with Friends and Fami ly Not on file 02/06/2023 Sex and Gender Information Value Date Recorded Sex Assigned at Not on file Gender Identity Not on file Sexual Orientation Not on file Obstetrics History Last Filed Vital Signs Vital Sign Reading Time Taken Comments Blood Pressure 122/88 10/11/2018 9:20 PM INJECTION WAX MOLDER Pulse 85 10/11/2018 9:20 PM INJECTION WAX MOLDER Temperature 35.9 C (96.6 F) 10/11/2018 9:20 PM INJECTION WAX MOLDER Respiratory Rate 15 10/11/2018 9:20 PM INJECTION WAX MOLDER Oxygen Saturation 100% 10/11/2018 9:20 PM INJECTION WAX MOLDER Inhaled Oxygen Concentration - - Weight 61.2 kg (135 lb) 10/11/2018 9:20 PM INJECTION WAX MOLDER Height 175.3 cm (5' 9) 10/11/2018 9:20 PM INJECTION WAX MOLDER Body Mass Index 19.94 10/11/2018 9:20 PM INJECTION WAX MOLDER Plan of Treatment Health Maintenance Due Date Last Done Comments Depression screening for age 12+ 2007 HIV for age 15-65 2010 BMI (ht and wt on same day) for age 18+ 2013 Hepatitis C screening for age 18-79 2013 Tetanus booster 01/04/2016 01/04/2006 COVID-19 vaccine series ( season) 2024 11/20/2020, 10/30/2020 Influenza for age 9-49 07/09/2024 9, 09/13/2006, 08/28/2005, Additional history exists Pap test for age 21-65 04/28/2027 4, 04/28/2024, 12/27/2020, Additional history exists Tdap Completed 01/04/2006 Pneumococcal series for age 6-64 Aged Out No longer eligible based on patient's age to complete this topic Procedures Procedure Name Priority Date/Time Associated Diagnosis Comments HPV HIGH RISK Routine 04/28/2024 3:40 PM CDT from Last 3 Months or Most Recently Relevant to Health Maintenance Results * HPV HIGH RISK (04/28/2024 3:40 PM CDT) TYPE 16 Negative Negative 05/03/2024 2:02 PM [address] [facility] TRAL LABORATORY TYPE 18 Negative Negative 05/03/2024 2:02 PM CDT [facility] TR[facility] LABOR[facility]ORY OTHER HIGH RISK TYPES Negative Negative 05/03/2024 2:02 PM CDT [facility] Other (Cervical) 04/28/2024 3:40 PM CDT 05/02/2024 8:59 AM CDT Narrative [facility] - 05/03/2024 2:02 PM CDT HPV types 16, 18, 31, 33, 35, 39, 45, 51, 52, 56, 58, 59, 66 and 68 DNA were undetectable or below the pre-set threshold. Methodology: Mohan Santiago 4800 HPV Test Louisa Alva [facility] [address] [place] [id number], from Last 3 Months or Most Recently Relevant to Health Maintenance Care Teams Special Education Teachers Relationship Specialty Start Date End Date Sukhdeep Echols, BRANDYN [address] [place] [id number] PCP - General Physician Senior Network Security Architect 01/17/20 Unknown, Doctor . Unknown Physician Specialty 01/17/20
== END 2024-09-25 14:20 | disposition home or self-care (01) ==
LOC: NFLDREF 09-29 14:40
PROVIDERS: PCP Physician Assistant Medical; Referring Provider Physician Assistant Medical; Visit Provider Midwife
DX: O20.0 Threatened abortion (principal)
CPT/HCPCS: 84702

== ENCOUNTER 2024-09-27 14:22 | Outpatient (CLI) | payer BC, SELFPAY ==
--- OUTSIDE RECORDS SUMMARY | 2024-09-30 17:39 | XMS_ITS | Clinical Summary ---
Author Organization [employer] [facility] Address [place], [place] [address] Care Team Providers Care Proof Technician Helper Name Role Phone Sukhdeep Echols PA-C Primary Care Provider [phone] Unknown, Doctor Unavailable Unavailable Allergies Active Allergy [...] >=3 years)(Flu Clinic Only) 08/12/2009 COVID-19 vaccine ([employer] customer insight 30mcg/0.3mL) PF, MDV 11/20/2020,10/30/2020 DTP-HIB 03/07/1996, 5,1995,02/19 [...] Comments Blood Pressure 122/88 10/11/2018 9:20 PM SPORTS MEDICINE MASSEUR Pulse 85 10/11/2018 9:20 PM SPORTS MEDICINE MASSEUR Temperature 35.9 C (96.6 F) 10/11/2018 9:20 PM SPORTS MEDICINE MASSEUR Respiratory Rate 15 10/11/2018 9:20 PM SPORTS MEDICINE MASSEUR Oxygen Saturation 100% 10/11/2018 9:20 PM SPORTS MEDICINE MASSEUR Inhaled Oxygen Concentration - - Weight 61.2 kg (135 lb) 10/11/2018 9:20 PM SPORTS MEDICINE MASSEUR Height 175.3 cm (5' 9) 10/11/2018 9:20 PM SPORTS MEDICINE MASSEUR Body Mass Index 19.94 10/11/2018 9:20 PM SPORTS MEDICINE MASSEUR Plan of Treatment Health Maintenance Due Date [...] 16 Negative Negative 05/03/2024 2:02 PM CDT [facility] TRAL LABORATORY TYPE 18 Negative Negative 05/03/2024 2:02 PM CDT [facility] TRAL LABORATORY OTHER HIGH RISK TYPES Negative Negative 05/03/2024 2:02 PM CDT [facility] Other (Cervical) 04/28/2024 3:40 PM CDT 05/02/2024 8:59 AM CDT Narrative [facility] - 05/03/2024 2:02 PM CDT HPV types 16, 18, 31, 33, 35, 39, 45, 51, 52, 56, 58, 59, 66 and 68 DNA were undetectable or below the pre-set threshold. Methodology: Mohan Santiago 4800 HPV Test Lousia Alva [facility] [address] [place] [id number], from Last 3 Months or Most Recently Relevant to Health Maintenance Care Teams Proof Technician Helper Relationship Specialty Start Date End Date Sukhdeep Echols, BRANDYN [address] [place] [phone] PCP - General Physician Log Sorter 01/17/20 Unknown, Doctor . Unknown Physician Specialty 01/17/20
== END 2024-09-27 14:23 | disposition home or self-care (01) ==
LOC: NFLDREF 09-30 17:37
PROVIDERS: PCP Physician Assistant Medical; Referring Provider Physician Assistant Medical; Visit Provider Midwife
DX: O20.0 Threatened abortion (principal)
CPT/HCPCS: 84702

== ENCOUNTER 2024-10-06 13:35 | Outpatient (CLI) | payer BC, SELFPAY ==
--- OUTSIDE RECORDS SUMMARY | 2024-10-07 13:21 | XMS_ITS | Clinical Summary ---
Author Organization [employer] [facility] Address [place], [place] [address] Care Team Providers Care Bottomer Operator Name Role Phone Sukhdeep Echols PA-C Primary Care Provider [phone] Unknown, Doctor Unavailable Unavailable Allergies Active Allergy [...] >=3 years)(Flu Clinic Only) 08/12/2009 COVID-19 vaccine ([employer] [facility] 30mcg/0.3mL) PF, MDV 11/20/2020,10/30/2020 DTP-HIB 03/07/1996, 5,1995,02/19 [...] Comments Blood Pressure 122/88 10/11/2018 9:20 PM RETORT SETTER Pulse 85 10/11/2018 9:20 PM RETORT SETTER Temperature 35.9 C (96.6 F) 10/11/2018 9:20 PM RETORT SETTER Respiratory Rate 15 10/11/2018 9:20 PM RETORT SETTER Oxygen Saturation 100% 10/11/2018 9:20 PM RETORT SETTER Inhaled Oxygen Concentration - - Weight 61.2 kg (135 lb) 10/11/2018 9:20 PM RETORT SETTER Height 175.3 cm (5' 9) 10/11/2018 9:20 PM RETORT SETTER Body Mass Index 19.94 10/11/2018 9:20 PM RETORT SETTER Plan of Treatment Health Maintenance Due Date [...] 16 Negative Negative 05/03/2024 2:02 PM CDT [facility] TRAL LABORATORY TYPE 18 Negative Negative 05/03/2024 2:02 PM CDT [facility] TRAL LABORATORY OTHER HIGH RISK TYPES Negative Negative 05/03/2024 2:02 PM CDT [facility] Other (Cervical) 04/28/2024 3:40 PM CDT 05/02/2024 8:59 AM CDT Narrative [facility] - 05/03/2024 2:02 PM CDT HPV types 16, 18, 31, 33, 35, 39, 45, 51, 52, 56, 58, 59, 66 and 68 DNA were undetectable or below the pre-set threshold. Methodology: Mohan Santiago 4800 HPV Test Louisa Alva [facility] [address] [place] [id number], from Last 3 Months or Most Recently Relevant to Health Maintenance Care Teams Bottomer Operator Relationship Specialty Start Date End Date Sukhdeep Echols, BRANDYN [address] [place] [id number] PCP - General Physician Typesetters Printer 01/17/20 Unknown, Doctor . Unknown Physician Specialty 01/17/20
== END 2024-10-06 13:36 | disposition home or self-care (01) ==
LOC: NFLDREF 10-07 13:20
PROVIDERS: PCP Physician Assistant Medical; Referring Provider Physician Assistant Medical; Visit Provider Advanced Practice Midwife
DX: O03.9 Complete or unspecified spontaneous abortion without complication (principal)
CPT/HCPCS: 84702

== ENCOUNTER 2024-10-19 15:18 | Outpatient (CLI) | payer BC, SELFPAY | END 2024-10-19 15:19 | disposition home or self-care (01) | LOC: NFLDREF 10-20 08:44 | PROVIDERS: PCP Physician Assistant Medical; Referring Provider Physician Assistant Medical; Visit Provider Advanced Practice Midwife | DX: O03.9 Complete or unspecified spontaneous abortion without complication (principal) | CPT/HCPCS: 84702 ==

== ENCOUNTER 2025-03-15 13:53 | Outpatient (CLI) | payer BC, SELFPAY ==
--- NOTE | 2025-03-15 14:00 | CRLHL7_ITS ---
For Patients: As a result of the Cures Act, medical imaging exams and procedure reports are released immediately into your electronic medical record. You may view this report before your referring provider. If you have questions, please contact your health care provider. OB ULTRASOUND INDICATION: Dating and viability. TECHNIQUE: Real time grayscale imaging of the fetus was performed. Transvaginal imaging performed for better visualization. LMP: 01/08/2025. NATHALY by LMP: 10/15/2025. GA: 9 w, 3 d. Previous US: No. CRL: 2.8 cm. 9 w 4 d. NATHALY: 10/14/2025. FHR: 171 BPM. Gestational sac: 4.1 cm. Appears within normal limits. Yolk sac: 3.0 mm. Appears within normal limits. Right ovary: 3.4 x 1.4 x 2.0 cm. Left ovary: 3.8 x 1.9 x 1.8 cm. IMPRESSION: 1. Sonographic gestational age 9 weeks 4 days and sonographic due date 10/14/2025. 2. Likely physiological mid gut herniation. Follow-up in two weeks recommended. Brandon Morejon M.D. Diagnostic Radiologist [email or web address] ARMAND/wesley olson/Dictated by: Brandon Morejon MD @ 03/15/2025 4:05:00 PM (Electronically Signed)
== END 2025-03-15 13:54 | disposition home or self-care (01) ==
LOC: US 13:54
PROVIDERS: PCP Physician Assistant Medical; Visit Provider Advanced Practice Midwife
DX: Z34.91 Encounter for supervision of normal pregnancy, unspecified, first trimester (principal); Z3A.09 9 weeks gestation of pregnancy
CPT/HCPCS: 76817; 83021; 86592; 86703; 86704; 86706; 86762; 86787; 86803; 86850; 87086; 87340

== ENCOUNTER 2025-04-06 07:12 | Outpatient (CLI) | payer BC, SELFPAY ==
--- NOTE | 2025-04-06 07:18 | CRLHL7_ITS ---
For Patients: As a result of the Cures Act, medical imaging exams and procedure reports are released immediately into your electronic medical record. You may view this report before your referring provider. If you have questions, please contact your health care provider. OBSTETRICAL ULTRASOUND, 04/06/2025 LMP: 01/08/2025. NATHALY by LMP: 10/15/2025. GA: 12w 4d Previous: Y 03/15/2025 NATHALY by US: 10/14/2025. INDICATION: F/U midgut herniation. TECHNIQUE: Real time guzman scale imaging of the fetus was performed. Transabdominal. CRL: 7.1 cm. 13 w 2 d. NATHALY: 10/10/2025. FHR: 167 BPM. Gestational sac: 6.0 cm. Appears within normal limits. Yolk sac: 3.6 mm. Appears within normal limits. Right ovary: Within normal limits. 3.5 x 1.3 x 2.2 cm cm. Left ovary: N/V. IMPRESSION: 1. Single living intrauterine measuring 13 weeks 2 days and sonographic due date of 10/10/2025. 2. Interval resolution of the midgut herniation when compared to the prior study. Brandon Morejon M.D. Diagnostic Radiologist [email or web address] ARMAND/jordyn JR/Dictated by: Brandon Morejon MD @ 04/06/2025 8:22:00 AM (Electronically Signed)
== END 2025-04-06 07:13 | disposition home or self-care (01) ==
LOC: US 07:13
PROVIDERS: PCP Physician Assistant Medical; Visit Provider Advanced Practice Midwife
DX: Z34.91 Encounter for supervision of normal pregnancy, unspecified, first trimester (principal); Z3A.13 13 weeks gestation of pregnancy
CPT/HCPCS: 76816

== ENCOUNTER 2025-06-04 12:58 | Outpatient (CLI) | payer BC, SELFPAY ==
--- NOTE | 2025-06-04 13:00 | CRLHL7_ITS ---
For Patients: As a result of the Century Cures Act, medical imaging exams and procedure reports are released immediately into your electronic medical record. You may view this report before your referring provider. If you have questions, please contact your health care provider. INDICATION: screen COMPARISON: OB ultrasound on April 06, 2025. TECHNIQUE: Real time guzman scale imaging of the fetus was performed as well as color Doppler analysis of the umbilical vessels. FINDINGS: Sonographic imaging demonstrates a single living intrauterine gestation. The fetus has a regular cardiac rate of 147 beats per minute. The fetus has a vertex orientation. The placenta lies posterior without evidence of placenta previa. Amniotic fluid volume appears normal. The cervix is closed and measures 3.0 cm in length. The composite ultrasound gestational age is calculated at 20 weeks and 6 days with an estimated sonographic due date of 10/16/2025. The estimated weight is 401 grams which lies at the 52 percentile. The following biometric measurements were obtained: Biparietal diameter: 4.7 cm, 20 weeks and 1 day Head circumference: 18.7 cm, 21 weeks and 0 days Abdominal circumference: 16.3 cm, 21 weeks and 3 days Femur length: 3.5 cm, 20 weeks and 0 days On anatomic survey, there is a normal appearance of the cerebral ventricles, cavum septi pellucidi, cisterna magna and cerebellum. The nose, lips, and facial profile appear normal. The cervical, thoracic, and lumbar spine appear normal. There is a normal four-chamber heart view and the left and right ventricular outflow tracts appear normal. The diaphragm and stomach appear normal. The kidneys and bladder appear normal. There is a normal three-vessel cord and cord insertion site. The four extremities appear normal. IMPRESSION: 1. Single living intrauterine gestation in vertex position with heart rate of 147 beats per minute. 2. Ultrasound gestational age 20 weeks and 6 days with sonographic due date of 10/16/2025. 3. No intrinsic abnormalities noted on anatomic survey. Dictated by Ancelmo Vaughn MD @ 06/07/2025 3:10:04 PM (Electronically Signed)
== END 2025-06-04 12:59 | disposition home or self-care (01) ==
LOC: US 12:59
PROVIDERS: PCP Physician Assistant Medical; Visit Provider Midwife
DX: Z34.92 Encounter for supervision of normal pregnancy, unspecified, second trimester (principal); Z3A.20 20 weeks gestation of pregnancy
CPT/HCPCS: 76805

== ENCOUNTER 2025-07-27 14:07 | Outpatient (CLI) | payer BC, SELFPAY | END 2025-07-27 14:08 | disposition home or self-care (01) | LOC: NFLDREF 08-02 02:08 | PROVIDERS: PCP Physician Assistant Medical; Referring Provider Physician Assistant Medical; Visit Provider Midwife | DX: Z34.93 Encounter for supervision of normal pregnancy, unspecified, third trimester (principal) | CPT/HCPCS: 86592 ==

== ENCOUNTER 2025-09-20 09:24 | Outpatient (CLI) | payer BC, SELFPAY | END 2025-09-20 09:25 | disposition home or self-care (01) | LOC: NFLDREF 09-25 21:42 | PROVIDERS: PCP Physician Assistant Medical; Referring Provider Physician Assistant Medical; Visit Provider Advanced Practice Midwife | DX: Z34.93 Encounter for supervision of normal pregnancy, unspecified, third trimester (principal) | CPT/HCPCS: 87081; 87653 ==

== ENCOUNTER 2025-10-10 21:51 | Inpatient (IN) | payer BC, SELFPAY ==
[2025-10-10] VITALS (7 sets, daily range): BP systolic 122–140; BP diastolic 72–93; PULSE 78–110; RESP 18; TEMP 36.7–37.2; O2SAT 100
[2025-10-10 21:48] LABS: Amnisure Rom* POSITIVE
--- NOTE | 2025-10-10 22:09 | P.LDBA_ITS ---
Subjective History of Present Illness Date Seen: 10/10/25 Narrative: Patient is being admitted to Labor and Delivery for SROM. She is a 30 year old at 39.2 weeks gestation. Her full history and physical was dictated by Martina Kam CNM on 09/28/25. Please see this for details. Amrita felt a gush of fluid around 2030 and has been leaking clear fluid since. AmniSure positive. She was not feeling contractions until shortly after she arrived and is now feeling painful contractions consistently. She desires a waterbirth. A SVE was attempted by the RN but she was unable to assess due to maternal positioning and intolerance. Will plan to reevaluate if not continuing to progress spon taneously. Initial blood pressures were elevated but as noted by the RN they were taken during contractions or movement. Blood pressure was WNL when taken without these interferences. FhR tracing very difficult due to maternal positioning and movement and fetus being low in the pelvis. Will plan for continuous monitoring in the tub for now given unclear but not concerning FHR tracing and desire for a waterbirth. Specific Issues/Plans : Jimenez Son: Deep It is a girl! H&P on 09/28/25 by Martina Kam # Gut herniation at 1st trimester US, physiologically appropriate for gestational age Follow-up US for reassurance in 2 weeks: resolved # Exposure to x-ray at time of conception # Scoliosis Anesthesia consult completed last , 12/23/2022 # Penicillin allergy (hives as a baby), needs sensitivities with GBS Offered allergy testing, elects to defer until not ?? ? TDAP:given 08/10/25 RSV: given 09/05/25 COVID: declined Flu: declined OB - Problem Based A/P Additional Plan (1) SROM (spontaneous rupture of membranes): Status: Acute Plan ASSESSMENT:? ?at?39.2?weeks gestation? GBS?negative? Uncomplicated ? SROM followed by active labor Blood type:?A+ ?? PLAN:? 1.?Consider augmentation if labor stalls given ROM status. 2. Desires?water?. Consent signed.?Hep?C negative.? 3. Candidate for analgesia of choice. Planning unmedicated .? 4. Anticipate ? 5. Expectant management at this time.? 6. IV currently in place 7. Continuous monitoring at this time given difficult and unclear FHR tracing but not concerning tracing. Delivery/Labor/Induction Plan Plan: expectant management OB Result Labs Blood Type: A (+) positive Rubella: immune RPR/VDLR: nonreactive GBS Status: negative HBsAG: negative OB Exam Physical Exam Vital signs: Pulse BP Pulse Ox 110 H 136/93 H 100 10/10/25 21:52 10/10/25 21:52 10/10/25 21:47 Narrative: Psychiatric:? Alert and oriented x3? HEENT:? Normocephalic, atraumatic? Neck:? Supple without adenopathy or thyromegaly? Lungs:? Clear to auscultation bilaterally? Heart:? Regular rate and rhythm, no murmur, rub or gallop? Abdomen:? Soft, nontender, and gravid? Extremities:? No edema or erythema? Detailed Labor and Delivery Exam Patient Gravid: yes Contraction Frequency: 1-3 Contraction intensity: Strong/Firm Fetus (Single) Amniotic Membrane Status: SROM Amniotic Membrane Fluid Description: Clear Heart Rate Baseline: 125 Monitor Accelerations: Present Monitor Decelerations: Variable Senior Living Variability: Moderate (6-25) Additional Findings Additional findings: FHR tracing difficult due maternal positioning.
[2025-10-10 22:52] LABS: Hematocrit* 38.2 % (33.0-51.0); Hemoglobin* 13.3 gm/dL (12.0-16.0); Immature Granulocytes Pct Auto 0.6 %; Mean Corpuscular HGB Conc 35 gm/dL (32-36); Mean Corpuscular Hemoglobin 34 pg (26-34); Mean Corpuscular Volume 99 fL (80-100); RDW Coefficient of Variation % 11.9 % (11.5-15.5); Red Blood Count* 3.88 m/uL (4.00-5.20); White Blood Count* 12.31 K/uL (4.50-11.00)
[2025-10-10 23:01] LABS: Immature Granulocytes Abs Auto 0.10 K/uL (0.00-0.30); Lymphocytes Absolute Auto 2.70 K/uL (0.90-2.90); Slide Review Reflex No
[2025-10-10] MEDS: OXYTOCIN 30 unit/500 ML in NS 30 UNIT/500 ML BAG 300 UNIT IVPB (23:37)
--- NOTE | 2025-10-10 23:55 | W.PM.OBVAGDE ---
OB Procedure Vag Delivery Mother Details Mother Details: The patient is a 30 year-old, 4, Para 1, admitted on 10/10/25 at 39.2 Days gestation. : 4 Para: 2 Weeks Gestation: 39.2 Admission Date: 10/10/25 Additional Details Amniotic Membrane Status: SROM Amniotic Membrane Rupture Date: 10/10/25 Amniotic Membrane Rupture Time: 20:30 Amniotic Membrane Fluid Description: Clear Analgesia/Anesthesia Type: None Waterbirth: Yes Pitcoin: Yes (AMTSL) Intrapartal Events: Precipitous Labor <3 Hrs Labor Onset: 21:45 Complete: 23:11 Pushin:13 Heart: heart tones during second stage were category 2 but difficult to trace with an incomplete tracing. Variable decelerations were heard and traced during second stage with recovery and good variability. Delivery Details Delivery Date: 10/10/25 Delivery Time: 23:19 Route of delivery: Infant Viability: Alive; Heart Rate Present Position at Delivery: OA Delivery Details: Patient was admitted for SROM and progressed normally. SROM noted at home at 2030 with clear fluid. Patient was presumed complete with spontaneous pushing at 2311 and actively pushing at 2313. of a viable female at 2319 in recumbent position in the tub. Vertex delivered OA. No shoulder.Nuchal cord x1 was easily reduced after delivery of the head. Body delivered easily and without incident. Infant passed to mothers abdomen with a vigorous cry. Cord was clamped and cut at > 5 minutes. APGARS were 7 at one minute and 8 at five minutes respectively. Mouth was bulb suctioned. Intact placenta with a 3 vessel cord delivered spontaneously at 2340. Fundus firm. Intact identified afte inspection and repaired in typical fashion. QBL 50 cc. Mother and baby stable; mother plans to breastfeed. Infant weight 7lb 4. 1 Minute Interval Total Score: 7 5 Minute Interval Total Score: 8 Additional Details Shoulder Dystocia: No Placenta Delivery Time: 23:40 Placental Delivery Description: Spontaneous Procedure Done: Global Blood Loss: 50 Laceration: None Episiotomy Description: None Blood Loss Measurement Type: QBL Bakri Used: No Sponge/Need Count Correct: Yes Cord Vessel Description: 3 Vessels, Nuchal Cord and Reduced Event Summary Status: Mother and were stable after delivery. Disposition: floor
[2025-10-11] VITALS (12 sets, daily range): BP systolic 105–133; BP diastolic 62–81; PULSE 61–91; RESP 16–18; TEMP 36.7–37.1; O2SAT 97–99
[2025-10-11] MEDS: IBUPROFEN 600 MG TABLET PO (05:44)
[2025-10-11] MEDS: DOCUSATE SODIUM 100 MG CAPSULE PO (08:51)
--- NOTE | 2025-10-11 10:11 | P.OBPN_ITS ---
OB - PN:Subj Subjective Date Seen: 10/11/25 Narrative: Sangeeta is a 30 year old who was admitted for active labor and proceeded to have a vaginal waterbirth. No lacerations noted. The patient feels well.? The pain is well controlled with current medications.? She has no new complaints.? Urinary output is adequate and she is voiding without difficulty.? Has a good appetite, is tolerating a general diet, is passing flatus, and has not had a bowel movement.? Has scant amount of rubra lochia.? She is ambulating well. She is and reports it is going well.?Deep will be coming to visit soon! OB - PN: Obj Exam Physical Exam: Vital signs: Temp Pulse Resp BP Pulse Ox O2 Del Method 98.2 F 87 16 105/69 97 Room Air 10/11/25 08:35 10/11/25 08:35 10/11/25 08:35 10/11/25 08:35 10/11/25 08:35 10/11/25 08:35 Narrative: GENERAL APPEARANCE:? normal affect, alert, no distress MOOD:? appropriate ABDOMEN:? soft, non-tender the uterine fundus is 3 fingerbreadths below Umbilicus, Midline and is appropriate for the stage of recovery. EXTREMITIES:? normal and minimal edema OB - PN: Obj Data Labs Labs: Laboratory Results - last 24 hr 10/10/25 10/10/25 21:43 22:10 WBC 12.31 H RBC 3.88 L Hgb 13.3 Hct 38.2 MCV 99 MCH 34 MCHC 35 RDW Coeff of Jessica 11.9 Plt Count 189 Neut % (Auto) 69.7 Lymph % (Auto) 21.6 [place] % (Auto) 7.6 Eos % (Auto) 0.2 Baso % (Auto) 0.3 Neut # (Auto) 8.60 H Lymph # (Auto) 2.70 [place] # (Auto) 0.90 Eos # (Auto) 0.00 Baso # (Auto) 0.00 Abs Immat Gran (auto) 0.10 Imm/Tot Granulo (auto) 0.6 Membrane Rupture POSITIVE Syphilis IgG Antibody Non-Reactive Blood Type A Positive Antibody Screen NEGATIVE OB - PN: A/P Delivery Assessment and Plan (1) care and examination of lactating mother: Status: Acute (2) Normal vaginal delivery: Status: Acute Plan Comments: PP day #1 Routine care May see as desired Anticipate discharge 10/12/2025
[2025-10-11] MEDS: ACETAMINOPHEN 500 MG TABLET 1000 MG PO (23:21)
[2025-10-12] MEDS: IBUPROFEN 600 MG TABLET PO (02:28)
[2025-10-12 03:12] VITALS: BP 115/69; PULSE 67; RESP 16; TEMP 36.6; O2SAT 98
[2025-10-12 08:50] VITALS: BP 116/75; PULSE 82; RESP 18; TEMP 36.5; O2SAT 96
--- NOTE | 2025-10-12 08:53 | PM.OBDSVD1 ---
DS: Providers Provider Date Seen: 10/12/25 Date of admission: 10/10/25 21:51 Primary care physician: Sukhdeep Echols PA-C Admitting Clinician: Louisa Alva CNM Attending Physician on discharge: Sonia Kam CNM Date of Discharge: 10/12/25 DS: Diagnosis Discharge Diagnosis (1) care and examination of lactating mother: Status: Acute (2) Normal vaginal delivery: Status: Acute Exam Narrative: Exam Narrative: VSS, afebrile GENERAL APPEARANCE: ?normal affect, alert, no distress MOOD: ?appropriate HEENT: normocephalic, neck supple, full ROM CHEST: ?Symmetrical chest wall movement. ?Normal respiratory effort. ?Clear to auscultation HEART: ?regular rate and rhythm ABDOMEN: ?soft, non-tender. Uterine fundus is firm, at Umbilicus, Midline and is appropriate for the stage of recovery. ?Bowel sounds present. PERINEUM: ?mild edema of the perineum,intact EXTREMITIES: ?normal and no edema Const: Vital Signs, click to edit/add: Vital Signs - 24 hr 10/11/25 13:15 10/11/25 16:00 10/11/25 20:30 Temperature 98.8 F 98.8 F 98.5 F Pulse Rate [Pulse Oximeter] 72 61 91 Respiratory Rate 16 16 16 Blood Pressure [Ri ght Arm] 120/76 108/62 120/77 Pulse Oximetry 98 98 97 Oxygen Delivery Me thod Room Air Room Air Room Air 10/12/25 03:12 Temperature 97.8 F Pulse Rate [Pulse Oximeter] 67 Respiratory Rate 16 Blood Pressure [Ri ght Arm] 115/69 Pulse Oximetry 98 Oxygen Delivery Me thod Room Air Documenting provider has reviewed patient's vital signs: yes OB - DS: Summary Hospital Course Hospital Course: Sangeeta is a 30 y.o. who was admitted to [facility] for labor. ?She had an uncomplicated NVD.?The patient feels well. ?The pain is well controlled with current medications. ?She has no new complaints. ?She is breast feeding and reports things are going well.? the patient has done well.? Vitals have been stable.? She has remained afebrile.? Has a good appetite, is tolerating a general diet. ?She is voiding without difficulty.? She is passing gas and has had a bowel movement.? She is ambulating and denies any dizziness.? Has Small amount of rubra lochia. ?She is undecided on her plan for prevention. Peripartum Data Infant delivery method: Vaginal Laceration description: None [place] Gender: Female Infant Discharge Plan: Home Status at Discharge Functional status at discharge: independent ambulation Overall status at discharge: patient is progressing back to baseline Time Spent with Patient Time attestation: Total time spent providing and/or coordinating discharge services: Time spent: Less than 30 minutes Discharge Plan Discharge Disposition: Home, Self-Care Date of Admission: 10/10/25 21:51 Attending Provider on Discharge: Sonia Kam Primary Care Provider: Sukhdeep Echols Condition: Stable Anticipated Discharge Date/Time: 10/12/25 12:00 Discharge Medications: New acetaminophen 500 mg Tablet 1,000 mg PO Q6H PRNQty: 0 0RF docusate sodium 100 mg Capsule 100 mg PO DAILY Qty: 90 0RF ibuprofen 600 mg Tablet 600 mg PO Q6H PRNQty: 60 0RF Continued cholecalciferol (vitamin D3) 25 mcg (1,000 unit) capsule 25 mcg PO QDAY Zyrtec 10 mg capsule 10 mg PO QDAY PRN prenat.vits,toni,[id number] Tablet 1 tab PO QDAY ascorbate calcium (vitamin C) 500 mg tablet 500 mg PO QDAY Discharge Orders: Discharge Order (Routine); Ordered 10/12/25 Ordered By: Sonia Kam Patient Education: OB Over the Counter Medication Information, OB Vaginal/Breast Feeding Additional Instructions: Patient verbalized understanding of reviewed discharge instructions. Discharge instructions were reviewed with the patient including signs and symptoms of infection and home going medications Nothing vaginally for 6 weeks: no tampons or intercourse Do not drive while taking narcotic pain medication(s) Off Work or School for 6 weeks 2-week visit: discuss feeding concerns, review control options and screen for anxiety/depression. 6-week visit for an annual exam. consultation services are available to all mothers and babies for the first year after delivery.? To make an appointment, please call [phone]. Activity Level: Activity as Tolerated Discharge Diet: Regular Follow Up Appointments: [facility]Provider Group[facility]: [facility] Info Instructions
[2025-10-12] MEDS: ACETAMINOPHEN 500 MG TABLET 1000 MG PO (08:55)
[2025-10-12] MEDS: DOCUSATE SODIUM 100 MG CAPSULE PO (08:55)
== END 2025-10-12 13:11 | disposition home or self-care (01) | DRG 560 ==
LOC: OB OUT 21:51 → OB 21:51
PROVIDERS: Admitting Provider Advanced Practice Midwife; PCP Physician Assistant Medical; Visit Provider Advanced Practice Midwife
DX: O62.3 Precipitate labor (principal); Z3A.39 39 weeks gestation of pregnancy; Z37.0 Single live birth
CPT/HCPCS: 36415; 84112; 85025; 86780; 86850; 86900; 86901; G0463; A9270